=== PATIENT | male | born 1995 | race Two or more races ===

== ENCOUNTER 2021-04-26 06:22 | Observation (INO) | payer BC, MEDICARE ==
[2021-04-26] MEDS ORDERED: LIDOCAINE HCL 2% JELLY 5 ML TUBE ONE (08:20)
[2021-04-26] MEDS ORDERED: LIDOCAINE 1% W/EPINEPHRINE 20 ML VIAL ONE (08:20)
[2021-04-26] MEDS ORDERED: BUPIVACAINE 0.25% 30ML SDV ONE (08:20)
[2021-04-26] MEDS ORDERED: BUPIVACAINE LIPOSOME/PF 266 MG/20 ML IJ ONE (08:20)
[2021-04-26] MEDS ORDERED: ONDANSETRON HCL INJ 2MG/ML 2ML 2 MG/ML VIAL IV PRN (10:30)
[2021-04-26] MEDS ORDERED: HYDROMORPHONE 0.2MG/ML-SOD CHL 30ML PCA SYRINGE IV PRN (10:30)
[2021-04-26] MEDS ORDERED: NALOXONE HCL INJ 0.4 MG/ML AMP IV PRN (10:30)
[2021-04-26] MEDS ORDERED: DIPHENHYDRAMINE HCL INJ 50 MG/ML VIAL IM PRN (10:30)
[2021-04-26] MEDS ORDERED: SODIUM CHLORIDE 0.9% 1000ML 1,000 ML IV SCH (10:30)
[2021-04-26] MEDS ORDERED: KETOROLAC TROMETHAMINE 30 MG/ML VIAL IV PRN (10:30)
[2021-04-26 11:40] VITALS: BP 125/87
[2021-04-26] MEDS: CEFOXITIN 1GM/0.9% NS 50ML 50 ML IV SCH ×2 (11:49→17:02)
[2021-04-26 14:56] VITALS: BP 117/72
[2021-04-26] MEDS ORDERED: MIDAZOLAM HCL 2 MG/2 ML VIAL ONE (16:37)
[2021-04-26] MEDS ORDERED: FENTANYL CITRATE/PF 100MCG/2 ML INJ ONE (16:37)
== END 2021-04-26 17:56 | disposition home or self-care (01) ==
LOC: OR 06:22 → PACU V 10:22 → MED/SURG 11:16
PROVIDERS: ADMIT Surgery; ATTEND Surgery
DX: K64.8 Other hemorrhoids (principal); Z01.810 Encounter for preprocedural cardiovascular examination; Z01.812 Encounter for preprocedural laboratory examination; Z20.822 Contact with and (suspected) exposure to COVID-19; F41.9 Anxiety disorder, unspecified; F17.210 Nicotine dependence, cigarettes, uncomplicated
CPT/HCPCS: 46260; 88304; 93005; G0378; J2001; J2250; J3010; J7030; U0002